=== PATIENT | male | born 1935 | race Caucasian/White ===

== ENCOUNTER 2025-05-01 09:17 | Outpatient (CLI) | payer MEDICARE | END 2025-05-01 09:18 | disposition home or self-care (01) | LOC: CSHSLEEP 09:17 | PROVIDERS: ATTEND Family Medicine | DX: G47.33 Obstructive sleep apnea (adult) (pediatric) (principal); R53.83 Other fatigue; R06.83 Snoring; E66.9 Obesity, unspecified; Z68.29 Body mass index [BMI] 29.0-29.9, adult; I10 Essential (primary) hypertension; G47.61 Periodic limb movement disorder | CPT/HCPCS: 95811 ==